=== PATIENT | female | born 1995 | race Caucasian/White ===

== ENCOUNTER 2019-10-09 15:45 | Inpatient (IN) | payer OTHER ==
[2019-10-09] MEDS ORDERED: AMPICILLIN SODIUM 2 GM VIAL ONE (17:15)
[2019-10-09 17:20] VITALS: BMI 22.4
[2019-10-09] MEDS ORDERED: ELECTROLYTE-148 SOLN 500 ML IV ONE (17:21)
[2019-10-09] MEDS ORDERED: CITRIC ACID/SODIUM CITRATE 30 ML UNIT-DOSE CUP PO ONE (17:21)
[2019-10-09] MEDS ORDERED: ceFAZolin 2 GRAM PREMIX BAG IVPB ONE (17:30)
--- NOTE | 2019-10-09 17:44 | HP ---
Past Medical History - Primary Care Physician PCP:: Jose Henson - Admission Chief Complaint: Continuous urination and decreased FM History of Present Illness: Patient reports noticing "continuous urination since early afternoon yesterda." Today she started yto noticed decreased FM and her "abdomen appears smaller." patient also reports mild spotting. 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: Alzheimer's, CVA, Dementia, Migraine, Multiple Sclerosis, Peripheral Neuropathy, Parkinson's, Seizure, Syncope, TIA, Vertigo, Other Cardiovascular: No: AFIB, Aneurysm, Aortic Insufficiency, Aortic Stenosis, CAD, CHF, Deep Vein Thrombosis, HTN, Hyperlipdemia, ME, Mitral Insufficiency, Mitral Stenosis, Murmur, Pulmonary Hypertension, Other Pulmonary: No: Asthma, Bronchitis, Cancer, COPD, O2 Dependent, Pneumonia, Previously Intubated, Pulmonary Embolus, Pulmonary Fibrosis, Sleep Apnea, Other Gastrointestinal: No: Ascites, Cancer, Constipation, Crohn's Disease, Diverticulitis, Diverticulosis, Esophageal Varices, Gastritis, GERD, GI Bleed, Hemorrhoids, Hiatal Hernia, Inflamatory Bowel Disease, Irritable Bowel Disease, Pancreatitis, Peptic Ulcer Disease, Ulcerative Colitis, Other Hepatobiliary: No: Cirrhosis, Cholelithiasis, Cholecystitis, Choledocholithiasis , Hepatitis A, Hepatitis B, Hepatitis C, Other Renal/: No: Renal Failure, Renal Inusuff, BPH, Cancer, Hematuria, Hemodialysis , Neurogenic Bladder, Renal Calculi, UTI, Other Reproductive: No: Ectopic , Endometriosis, Fibroids, PID, Polycystic Ovary Syndrome, Postmenopausal, Other ...: 2 ...Para: 1 ...: 1 ...EDC by [facility]: 11/08/19 Heme/Onc: No: Anemia, B12 Deficiency, Bleeding Disorder, Cancer, Current Chemotherapy, Current Radiation Therapy, Hemochromatosis, Hypercoaguable State, Myeloproliferative Synd, Sickle Cell Disease, Sickle Cell Trait, Thrombocytopenia, Other Infectious Disease: No: AIDS, C-Diff, Herpes Zoster, HIV, MRSA, STD's, Tuberculosis, VREF, Other Psych: No: Addictions, Anxiety, Bipolar, Depression, Panic, Psychosis, Schizophrenia, Other Musculoskeletal: No: Bursitis, Chronic low back pain, Hemiparesis, Hemiplegia, Osteoarthritis, Paraplegia, Other Rheumatology: No: Fibromyalgia, Gout, Lupus, Rheumatoid Arthritis, Sarcoidosis, Vasculitis, Other ENT: No: Allergic Rhinitis, Sinusitis, Other Endocrine: No: Nuckolls's Disease, [place]'s Disease, Diabetes Insipidus, Diabetes Mellitus, Hyperparathyroidism, Hyperthyroidism, Hypothyroidism, Osteopenia, SIADH, Other Dermatology: No: Basal Cell, Cellulitis, Eczema, Melanoma, Psoriasis, Squamous Cell, Other - Past Surgical History Past Surgical History: No: None, AAA Repair, AICD, Amputation, Appendectomy, Arthrosocopy, AV Fistula/Graft, Bariatric Surgery, Breast Biopsy, Bypass, CABG, Carotid Endarterectomy, Cataract Removal, Cholecystectomy, Colectomy, Colonoscopy, Colostomy, Craniotomy, , Cystectomy, Hernia Repair, Hysterectomy, Ileal Conduit, Ileosotomy, Joint Replacement, Kidney Transplant, Laminectomy, Liver Transplant, Mastectomy, Nephrectomy, Oopherectomy, Orchiectomy, Permanent Pacemaker, Prostatectomy, Splenectomy, Stent, Thoracotomy , TURP, Tonsillectomy, Tubal Ligation, Upper Endoscopy, Valve Replacement, Vasectomy, Vein Stripping/Ligation Hx Myomectomy: No Hx Transabdominal Cerclage: No - Smoking History Smoking history: Never smoked Have you smoked in the past 12 months: No - Alcohol/Substance Use Hx Alcohol Use: No Home Medications - Allergies Allergies/Adverse Reactions: Allergies Allergy/AdvReac Type Severity Reaction Status Date / Time No Known Allergies Allergy Verified 10/09/19 17:37 - Home Medications Home Medications: Ambulatory Orders Pnv No.95/Ferrous Fum/Folic AC [ Formula] 1 each PO DAILY 08/14/19 Family Medical History Family Hx Diabetes: Grandmother (paternal) Review of Systems Findings/Remarks: Patient reports needing to go to the bathroom frequently - Review of Systems Constitutional: reports: No Symptoms Eyes: reports: No Symptoms Neck: reports: No Symptoms Cardiovascular: reports: No Symptoms Respiratory: reports: No Symptoms Gastrointestinal: reports: No Symptoms Genitourinary: reports: No Symptoms Breasts: reports: No Symptoms Reported Musculoskeletal: reports: No Symptoms Integumentary: reports: No Symptoms Neurological: reports: No Symptoms Endocrine: reports: No Symptoms Hematology/Lymphatic: reports: No Symptoms Psychiatric: reports: No Symptoms Physical Exam - Maternity Vital Signs: Vital Signs Temperature 97.4 F L 10/09/19 17:12 Pulse Rate 72 10/09/19 17:12 Respiratory Rate 18 10/09/19 17:12 Blood Pressure 109/76 10/09/19 17:12 O2 Sat by Pulse Oximetry (%) Constitutional: Yes: Calm HENT: Yes: Atraumatic Neck: Yes: Supple Cardiovascular: Yes: Regular Rate and Rhythm Lungs: Clear to auscultation Breast(s): Yes: Other (deferred) - Abdominal Exam/OB Number of Fetuses: Single Presentation: Breech Contractions: No Regularity: Irregular Intensity: Unaware Monitor Mode: External Category: I Accelerations: Uniform Decelerations: Variable - Vaginal Exam/OB Vaginal Bleediing: No Speculum Exam: Yes (small pooling) Dilatation (cm): 3 Effacement (%): 60 Amniotic Membrane Status: Ruptured Nitrazine Test: Positive Amniotic Fluid: Yes: Clear Presentation: Alex Breech Station: -3 - Physical Exam Musculoskeletal: Yes: WNL Extremities: Yes: WNL Edema: Yes Edema: LLE: Trace, RLE: Trace Integumentary: Yes: WNL Deep Tendon Reflex Grade: Normal +2 ...Motor Strength: WNL Psychiatric: Yes: Alert, Oriented - Labs Lab Results: sent Imaging - Results Ultrasound: Report Reviewed Problem List - Problems (1) Malpresentation before onset of labor Code(s): O32.9XX0 - MATERNAL CARE FOR MALPRESENTATION OF FETUS, UNSP, UNSP (2) premature rupture of membranes (PPROM) with unknown onset of labor Code(s): O42.919 - PRETRM KAYLIN ROM, UNSP TIME BETW RUPT AND ONST LABR, UNSP TRI Assessment/Plan 24 y/o @ 35.5wks, PPROM since yesterday, FHT cat II with occasional variables, H/O PTD and , on jignesh, latent early labor, malpresentation. Patient counseled regarding CD and informed consnet obtained. -Anesthesia and neonatology notified -proceed urgently
[2019-10-09] MEDS ORDERED: morphine SULFATE/PF 0.5 MG/ML (2cc Syringe - QUVA) ONE (18:13)
--- NOTE | 2019-10-09 18:18 | PN ---
Progress Note (short form) - Note Progress Note: summary reviewed by attending and no significant issues other as documented and H/O Chlamydia early in . Case discussed with neonatology and pr intern. We will proceed in emergent fashion. Problem List - Problems (1) Malpresentation before onset of labor Code(s): O32.9XX0 - MATERNAL CARE FOR MALPRESENTATION OF FETUS, UNSP, UNSP (2) premature rupture of membranes (PPROM) with unknown onset of labor Code(s): O42.919 - PRETRM KAYLIN ROM, UNSP TIME BETW RUPT AND ONST LABR, UNSP TRI
[2019-10-09] MEDS ORDERED: oxyCODONE HCL 5 MG TABLET PO PRN (18:21)
[2019-10-09] MEDS ORDERED: morphine SULFATE/PF 0.5 MG/ML (2cc Syringe - QUVA) EP ONE (18:22)
[2019-10-09] MEDS ORDERED: ceFAZolin SODIUM 1 GM VIAL ONE (18:28)
[2019-10-09] MEDS ORDERED: KETOROLAC TROMETHAMINE 30 MG/1 ML VIAL ONE (18:32)
[2019-10-09 18:33] LABS: BASO % 0.3 % (0-2.0); EOS % 0.5 % (0-4.5); HEMATOCRIT 29.1 % (32.4-45.2); HEMOGLOBIN 9.5 GM/dL (10.7-15.3); LYMPH % 12.5 % (8-40); MCH 30.1 pg (25.7-33.7); MCHC 32.5 g/dl (32.0-36.0); MEAN CELL VOLUME 92.4 fl (80-96); MEAN PLT VOLUME 8.8 fl (7.5-11.1); MONO % 9.4 % (3.8-10.2); NEUT % 77.3 % (42.8-82.8); PLATELET COUNT 268 K/MM3 (134-434); RBC 3.15 M/mm3 (3.60-5.2); RDW 13.1 % (11.6-15.6); WHITE BLOOD COUNT 15.9 K/mm3 (4.0-10.0)
[2019-10-09] MEDS ORDERED: OXYTOCIN 10 UNITS/ML VIAL ONE (18:43)
[2019-10-09 18:45] LABS: INR 0.96 (0.83-1.09); PROTHROMBIN TIME (PATIENT) 11.3 SEC (9.7-13.0)
[2019-10-09 18:53] LABS: BLOOD UREA NITROGEN 3.7 mg/dL (7-18); CALCIUM 9.7 mg/dL (8.5-10.1); CREATININE 0.4 mg/dL (0.55-1.3); POTASSIUM 4.4 mmol/L (3.5-5.1)
--- NOTE | 2019-10-09 19:09 | OP ---
Operative Note - Note: Operative Date: 10/09/19 (Dic#[id number]) Pre-Operative Diagnosis: PPROM and Breech presentation Operation: PLTCS Findings: see dictation Post-Operative Diagnosis: Same as Pre-op Surgeon: Jose Henson Recycling Sorter: Alexis Moore Anesthesia: Spinal Estimated Blood Loss (mls): 700 Fluid Volume Replaced (mls): 1,000 Operative Report Dictated: Yes
[2019-10-09] MEDS ORDERED: ONDANSETRON 4 MG/2 ML VIAL IVPUSH PRN ×2 (19:17)
--- NOTE | 2019-10-09 19:40 | OP ---
DATE OF OPERATION: 10/09/2019 PREOPERATIVE DIAGNOSIS: A 24-year-old 2, para 0-1-0-0 at 35 and 5 weeks gestation, premature rupture of membranes, latent early labor, breech presentation. POSTOPERATIVE DIAGNOSIS: A 24-year-old 2, para 0-1-0-0 at 35 and 5 weeks gestation, premature rupture of membranes, latent early labor, breech presentation. PROCEDURE: Primary low transverse section. SURGEON: Mello Fischer MD COMMUNICATIONS CLERK: REG Kenny ANESTHESIA: Spinal. ESTIMATED BLOOD LOSS: 700 mL. INTRAVENOUS FLUIDS: 1 L of crystalloid. URINE: Clear. COMPLICATIONS: None. FINDINGS: Normal anterior abdominal anatomy. Impending laya breech presentation. Bag posterior. No amniotic fluid. Live viable female. Uterus, bilateral tubes and ovaries consistent with normal anatomy. DESCRIPTION OF PROCEDURE: The patient was taken to the operating room where anesthesia was found to be adequate. She was then prepped and draped in the normal sterile fashion. Urinary Eugene catheter was placed atraumatically. Appropriate timeout took place. Pfannenstiel skin incision was carried through to the underlying fascia with the Bovie. The fascia was incised in the midline and the incision was extended laterally with sharp dissection. The underlying rectus muscles were dissected off sharply and bluntly. The rectus muscles were in the midline and the peritoneum was entered bluntly. Bladder blade was placed and the lower uterine segment was slightly effaced. Low transverse uterine segment incision was made with scalpel and extended laterally with blunt dissection. Infant was in the breech presentation back posterior. Infant was delivered through the surgical incision with mild fundal pressure with breech maneuvers, uncomplicated. Umbilical cord was clamped after delay and the was handed off to the awaiting NICU staff. The placenta was delivered manually and intact. The uterus was exteriorized through the surgical incision and the intrauterine cavity was cleared of all clots and debris. Hysterotomy incision was approximated with 1-0 Polysorb in a running locked fashion. Excellent structure reapproximation and hemostasis achieved with one-layer suture. Uterus was internalized to the pelvic cavity and gutters were cleared of all clots and debris. The fascial incision was reapproximated with 0 Polysorb running locked sutures. Excellent structure reapproximation achieved and confirmed by palpation by the surgeon. Subcutaneous tissues were copiously irrigated and bleeding neutralized with Bovie cautery. The skin incision was reapproximated with 3-0 Monocryl subcuticular sutures. Excellent structure reapproximation achieved. Patient tolerated the procedure well. Instrument count was reported as correct x2 by the staff. MELLO FISCHER MD [id number] MTDD
[2019-10-09] MEDS ORDERED: IBUPROFEN 800 MG/8 ML IJ IVPB ONE ×2 (20:31→20:36)
[2019-10-09] MEDS ORDERED: OXYTOCIN 20 UNITS in 0.9% NS 20 UNIT/1,000 ML INFUS.BAG IV ONE (20:34)
[2019-10-09] MEDS: OXYTOCIN 20 UNITS in 0.9% NS 20 UNIT/1,000 ML INFUS.BAG IV SCH (20:45)
[2019-10-09] MEDS ORDERED: METHYLERGONOVINE MALEATE 0.2 MG/1 ML AMP IM ONE (21:58)
[2019-10-09] MEDS: METHYLERGONOVINE MALEATE 0.2 MG TABLET (FP) PO SCH (22:04)
[2019-10-09 22:05] LABS: EPI CELLS 3.8 /HPF (0-5/HPF); HYALINE CASTS 42 /lpf (0-8); PH,URINE 8.5 (5.0-8.0); URINE APPEARANCE CLEAR; URINE BACTERIA 655.3 /hpf (NEGATIVE); URINE BILIRUBIN NEGATIVE (NEGATIVE); URINE COLOR YELLOW; URINE GLUCOSE (UA) NEGATIVE (NEGATIVE); URINE KETONE NEGATIVE (NEGATIVE); URINE LEUK ESTERASE 2+ (NEGATIVE); URINE NITRITE POSITIVE (NEGATIVE); URINE PROTEIN NEGATIVE (NEGATIVE); URINE RBC 2 /hpf (0-4); URINE WBC 57 /hpf (0-5)
[2019-10-10] MEDS: METHYLERGONOVINE MALEATE 0.2 MG TABLET (FP) PO SCH ×6 (02:02→22:05)
[2019-10-10] MEDS: OXYTOCIN 20 UNITS in 0.9% NS 20 UNIT/1,000 ML INFUS.BAG IV SCH (05:51)
--- NOTE | 2019-10-10 07:50 | PN ---
Post Progress Note - Subjective Subjective: Woodruff in place, tolerating PO, lochia decreased, breast feeding encouraged Type of Delivery: Primary C/S Vital Signs: Vital Signs Temperature 98.6 F 10/10/19 05:54 Pulse Rate 95 H 10/10/19 05:54 Respiratory Rate 20 10/10/19 05:56 Blood Pressure 104/58 L 10/10/19 05:54 O2 Sat by Pulse Oximetry (%) 87 L 10/09/19 19:55 Breast Exam: Yes: Other (deferred) Uterus: Yes: Fundus Firm Incision: Yes: Sutures intact Abdomen/GI: Yes: Abdomen soft Lochia, amount: Moderate Extremities: Yes: Calves non-tender Activity: Other - Labs Labs: CBC WBC 15.9 K/mm3 (4.0-10.0) H 10/09/19 17:59 RBC 3.15 M/mm3 (3.60-5.2) L 10/09/19 17:59 Hgb 9.5 GM/dL (10.7-15.3) L 10/09/19 17:59 Hct 29.1 % (32.4-45.2) L 10/09/19 17:59 MCV 92.4 fl (80-96) 10/09/19 17:59 MCH 30.1 pg (25.7-33.7) 10/09/19 17:59 MCHC 32.5 g/dl (32.0-36.0) 10/09/19 17:59 RDW 13.1 % (11.6-15.6) 10/09/19 17:59 Plt Count 268 K/MM3 (134-434) 10/09/19 17:59 MPV 8.8 fl (7.5-11.1) 10/09/19 17:59 Absolute Neuts (auto) 12.3 K/mm3 (1.5-8.0) H 10/09/19 17:59 Neutrophils % 77.3 % (42.8-82.8) 10/09/19 17:59 Lymphocytes % 12.5 % (8-40) 10/09/19 17:59 Monocytes % 9.4 % (3.8-10.2) 10/09/19 17:59 Eosinophils % 0.5 % (0-4.5) 10/09/19 17:59 Basophils % 0.3 % (0-2.0) 10/09/19 17:59 Nucleated RBC % 0 % (0-0) 10/09/19 17:59 Problem List - Problems (1) Malpresentation before onset of labor Code(s): O32.9XX0 - MATERNAL CARE FOR MALPRESENTATION OF FETUS, UNSP, UNSP (2) premature rupture of membranes (PPROM) with unknown onset of labor Code(s): O42.919 - PRETRM KAYLIN ROM, UNSP TIME BETW RUPT AND ONST LABR, UNSP TRI Assessment/Plan POD # 1 S/P PLTC due to PPROM and breech presentation, woodruff in place -F/U AM CBC -DC woodruff and encourage ambulation -Continue inpatient care -Anticipate D/C on POD # 3
[2019-10-10] MEDS ORDERED: IBUPROFEN 800 MG/8 ML IJ IVPB ONE (08:02)
[2019-10-10 08:10] LABS: BASO % 0.3 % (0-2.0); EOS % 0.2 % (0-4.5); HEMATOCRIT 30.5 % (32.4-45.2); HEMOGLOBIN 9.9 GM/dL (10.7-15.3); LYMPH % 6.7 % (8-40); MCH 29.6 pg (25.7-33.7); MCHC 32.5 g/dl (32.0-36.0); MEAN PLT VOLUME 8.9 fl (7.5-11.1); MONO % 9.8 % (3.8-10.2); PLATELET COUNT 239 K/MM3 (134-434); RBC 3.35 M/mm3 (3.60-5.2); RDW 13.2 % (11.6-15.6); WHITE BLOOD COUNT 21.5 K/mm3 (4.0-10.0)
--- NOTE | 2019-10-10 08:36 | PN ---
Progress Note (short form) - Note Progress Note: Anesthesia POD#1 S/P under Spinal a and Duramorph VSS, no N/V,mild pain, legs fully recovered. Lona Rayo MD.
[2019-10-10] MEDS: ACETAMINOPHEN 325 MG TABLET (FP) PO PRN ×2 (10:09→18:04)
[2019-10-10] MEDS: SIMETHICONE 80 MG TAB.CHEW (FP) PO PRN ×3 (10:10→20:52)
[2019-10-10 11:35] LABS: ANISOCYTOSIS 0; MACROCYTOSIS 0; PLATELET ESTIMATE NORMAL
[2019-10-10] MEDS: IBUPROFEN 600 MG TABLET (FP) PO PRN ×2 (14:30→20:52)
[2019-10-10] MEDS ORDERED: BISACODYL 10 MG SUPP.RECT RC PRN (18:21)
[2019-10-11] MEDS: SIMETHICONE 80 MG TAB.CHEW (FP) PO PRN (04:19)
[2019-10-11] MEDS: IBUPROFEN 600 MG TABLET (FP) PO PRN ×4 (04:19→19:13)
[2019-10-11] MEDS: ACETAMINOPHEN 325 MG TABLET (FP) PO PRN ×3 (04:19→19:14)
--- NOTE | 2019-10-11 09:00 | PN ---
Post Progress Note - Subjective Subjective: 24 yo Para 1 status post primary , seen and evaluated. Doing well. Post Day: 2 Type of Delivery: Primary C/S Vital Signs: Vital Signs Temperature 98.1 F 10/10/19 20:19 Pulse Rate 85 10/10/19 20:19 Respiratory Rate 20 10/10/19 20:19 Blood Pressure 109/61 10/10/19 20:19 O2 Sat by Pulse Oximetry (%) 87 L 10/09/19 19:55 Breast Exam: Yes: Soft Uterus: Yes: Fundus @ umbilicus Incision: Yes: Dressing dry and intact Abdomen/GI: Yes: Abdomen soft, Tolerating PO Lochia: Yes: Rubra Lochia, amount: Small Extremities: Yes: Calves non-tender Activity: Ambulating - Labs Labs: CBC WBC 21.5 K/mm3 (4.0-10.0) H 10/10/19 07:40 RBC 3.35 M/mm3 (3.60-5.2) L 10/10/19 07:40 Hgb 9.9 GM/dL (10.7-15.3) L 10/10/19 07:40 Hct 30.5 % (32.4-45.2) L 10/10/19 07:40 MCV 91.0 fl (80-96) 10/10/19 07:40 MCH 29.6 pg (25.7-33.7) 10/10/19 07:40 MCHC 32.5 g/dl (32.0-36.0) 10/10/19 07:40 RDW 13.2 % (11.6-15.6) 10/10/19 07:40 Plt Count 239 K/MM3 (134-434) 10/10/19 07:40 MPV 8.9 fl (7.5-11.1) 10/10/19 07:40 Absolute Neuts (auto) 17.9 K/mm3 (1.5-8.0) H 10/10/19 07:40 Neutrophils % 83.0 % (42.8-82.8) H 10/10/19 07:40 Neutrophils % (Manual) 82.0 % (42.8-82.8) 10/10/19 07:40 Band Neutrophils % 0.0 % 10/10/19 07:40 Lymphocytes % 6.7 % (8-40) L D 10/10/19 07:40 Lymphocytes % (Manual) 7.0 % (8-40) L 10/10/19 07:40 Monocytes % 9.8 % (3.8-10.2) 10/10/19 07:40 Monocytes % (Manual) 10 % (3.8-10.2) 10/10/19 07:40 Eosinophils % 0.2 % (0-4.5) 10/10/19 07:40 Eosinophils % (Manual) 0.0 % (0-4.5) 10/10/19 07:40 Basophils % 0.3 % (0-2.0) 10/10/19 07:40 Basophils % (Manual) 0.0 % (0-2.0) 10/10/19 07:40 Myelocytes % (Man) 0 % (0-2) 10/10/19 07:40 Promyelocytes % (Man) 0 % (0-2) 10/10/19 07:40 Blast Cells % (Manual) 0 % (0-0) 10/10/19 07:40 Nucleated RBC % 0 % (0-0) 10/10/19 07:40 Metamyelocytes 0 % (0-2) 10/10/19 07:40 Hypochromia 0 10/10/19 07:40 Platelet Estimate Normal 10/10/19 07:40 Polychromasia 0 10/10/19 07:40 Poikilocytosis 0 10/10/19 07:40 Anisocytosis 0 10/10/19 07:40 Microcytosis 0 10/10/19 07:40 Macrocytosis 0 10/10/19 07:40 Stomatocytes 1+ 10/10/19 07:40 Problem List - Problems (1) Status post primary low transverse section Problems reviewed: Yes Code(s): Z98.891 - HISTORY OF UTERINE SCAR FROM PREVIOUS SURGERY Assessment/Plan Status post primary Ambulation Analgesia as needed Continue routine post op care
[2019-10-11] MEDS: ELECTROLYTE-148 SOLN 1,000 ML IV SCH ×2 (19:52→19:53)
[2019-10-11] MEDS: LACTATED RINGERS SOLUTION 1,000 ML IV SCH (19:53)
[2019-10-11] MEDS: OXYTOCIN 20 UNITS in 0.9% NS 20 UNIT/1,000 ML INFUS.BAG IV SCH (19:53)
--- NOTE | 2019-10-12 06:15 | PN ---
Post Progress Note - Subjective Subjective: c/o pain scale 3-4/10 voiding without difficulty Post Day: 3 Type of Delivery: Primary C/S Vital Signs: Vital Signs Temperature 98.1 F 10/11/19 20:36 Pulse Rate 107 H 10/11/19 20:36 Respiratory Rate 20 10/11/19 20:36 Blood Pressure 119/68 10/11/19 20:36 O2 Sat by Pulse Oximetry (%) 87 L 10/09/19 19:55 Breast Exam: Yes: Soft, Other (bottle feeding ). No: Engorged Uterus: Yes: Fundus Firm, Fundus below umbilicus, Non-tender Incision: Yes: Sutures intact. No: Redness, Oozing Abdomen/GI: Yes: Abdomen soft, Passing flatus (bm done ), Tolerating PO (diet ) . No: Abdominal Distention, Tender Lochia: Yes: Rubra Lochia, amount: Moderate Extremities: Yes: Calves non-tender Perineum: Yes: Intact Activity: Ambulating - Labs Labs: CBC WBC 21.5 K/mm3 (4.0-10.0) H 10/10/19 07:40 RBC 3.35 M/mm3 (3.60-5.2) L 10/10/19 07:40 Hgb 9.9 GM/dL (10.7-15.3) L 10/10/19 07:40 Hct 30.5 % (32.4-45.2) L 10/10/19 07:40 MCV 91.0 fl (80-96) 10/10/19 07:40 MCH 29.6 pg (25.7-33.7) 10/10/19 07:40 MCHC 32.5 g/dl (32.0-36.0) 10/10/19 07:40 RDW 13.2 % (11.6-15.6) 10/10/19 07:40 Plt Count 239 K/MM3 (134-434) 10/10/19 07:40 MPV 8.9 fl (7.5-11.1) 10/10/19 07:40 Absolute Neuts (auto) 17.9 K/mm3 (1.5-8.0) H 10/10/19 07:40 Neutrophils % 83.0 % (42.8-82.8) H 10/10/19 07:40 Neutrophils % (Manual) 82.0 % (42.8-82.8) 10/10/19 07:40 Band Neutrophils % 0.0 % 10/10/19 07:40 Lymphocytes % 6.7 % (8-40) L D 10/10/19 07:40 Lymphocytes % (Manual) 7.0 % (8-40) L 10/10/19 07:40 Monocytes % 9.8 % (3.8-10.2) 10/10/19 07:40 Monocytes % (Manual) 10 % (3.8-10.2) 10/10/19 07:40 Eosinophils % 0.2 % (0-4.5) 10/10/19 07:40 Eosinophils % (Manual) 0.0 % (0-4.5) 10/10/19 07:40 Basophils % 0.3 % (0-2.0) 10/10/19 07:40 Basophils % (Manual) 0.0 % (0-2.0) 10/10/19 07:40 Myelocytes % (Man) 0 % (0-2) 10/10/19 07:40 Promyelocytes % (Man) 0 % (0-2) 10/10/19 07:40 Blast Cells % (Manual) 0 % (0-0) 10/10/19 07:40 Nucleated RBC % 0 % (0-0) 10/10/19 07:40 Metamyelocytes 0 % (0-2) 10/10/19 07:40 Hypochromia 0 10/10/19 07:40 Platelet Estimate Normal 10/10/19 07:40 Polychromasia 0 10/10/19 07:40 Poikilocytosis 0 10/10/19 07:40 Anisocytosis 0 10/10/19 07:40 Microcytosis 0 10/10/19 07:40 Macrocytosis 0 10/10/19 07:40 Stomatocytes 1+ 10/10/19 07:40 Problem List - Problems (1) Status post section routine follow-up Code(s): Z39.2 - ENCOUNTER FOR ROUTINE FOLLOW-UP; Z98.891 - HISTORY OF UTERINE SCAR FROM PREVIOUS SURGERY Assessment/Plan post c/section stable anemia counselled since in nursery, pt will go home tomorrow.
[2019-10-12 08:19] LABS: BASO % 0.3 % (0-2.0); EOS % 1.1 % (0-4.5); HEMATOCRIT 26.8 % (32.4-45.2); HEMOGLOBIN 8.7 GM/dL (10.7-15.3); MCH 29.9 pg (25.7-33.7); MCHC 32.6 g/dl (32.0-36.0); MEAN CELL VOLUME 91.8 fl (80-96); MEAN PLT VOLUME 8.7 fl (7.5-11.1); MONO % 8.9 % (3.8-10.2); NEUT % 74.7 % (42.8-82.8); PLATELET COUNT 274 K/MM3 (134-434); RBC 2.92 M/mm3 (3.60-5.2); RDW 13.3 % (11.6-15.6); WHITE BLOOD COUNT 18.1 K/mm3 (4.0-10.0)
[2019-10-12] MEDS: IBUPROFEN 600 MG TABLET (FP) PO PRN ×3 (08:57→22:21)
[2019-10-12] MEDS: ACETAMINOPHEN 325 MG TABLET (FP) PO PRN ×3 (08:57→22:21)
[2019-10-12] MEDS: SIMETHICONE 80 MG TAB.CHEW (FP) PO PRN ×2 (14:24→22:21)
--- NOTE | 2019-10-13 08:36 | DS ---
Physical Examination Vital Signs: Vital Signs Temperature 97.6 F 10/12/19 21:41 Pulse Rate 93 H 10/12/19 21:41 Respiratory Rate 18 10/12/19 21:41 Blood Pressure 122/70 10/12/19 21:41 O2 Sat by Pulse Oximetry (%) 87 L 10/09/19 19:55 Constitutional: Yes: Well Nourished, No Distress, Calm Eyes: Yes: WNL, Conjunctiva Clear, EOM Intact HENT: Yes: WNL, Atraumatic, Normocephalic Neck: Yes: WNL, Supple, Trachea Midline Cardiovascular: Yes: WNL, Regular Rate and Rhythm Respiratory: Yes: WNL, Regular, CTA Bilaterally Gastrointestinal: Yes: WNL, Normal Bowel Sounds Musculoskeletal: Yes: WNL Extremities: Yes: WNL Edema: No Integumentary: Yes: WNL Neurological: Yes: WNL, Alert, Oriented ...Motor Strength: WNL Psychiatric: Yes: WNL Labs: CBC, BMP 10/12/19 06:33 10/09/19 17:59 Discharge Summary Problems reviewed: Yes Reason For Visit: LABOR Current Active Problems Malpresentation before onset of labor (Acute) premature rupture of membranes (PPROM) with unknown onset of labor ( Acute) Status post section routine follow-up (Acute) Status post primary low transverse section (Acute) Procedures: Principal: PLTCS Hospital Course: Patient presented with PPROM Found to be in early labor, breech presentation Had PLTCS, which was uncomplicated She met all postoperative milestones She was discharged home on POD#4 Condition: Stable - Instructions Diet, Activity, Other Instructions: Please return to regular diet as tolerated. Regular activity when cleared by MD. Follow up discharge instructions as discussed at bedside. Follow up within a week for incision check. Call MD with any questions or concerns. Follow up with Dra. Marin on 10/19 at [facility] to have your incision checked Referrals: Sakina Marin MD [Staff Physician] - Jose Henson MD [Staff Physician] - Disposition: HOME - Home Medications Comprehensive Discharge Medication List: Ambulatory Orders Pnv No.95/Ferrous Fum/Folic AC [ Formula] 1 each PO DAILY 08/14/19 Acetaminophen [Tylenol] 650 mg PO Q6H PRN #20 capsule MDD 5 10/09/19 Ibuprofen 600 mg PO Q6H PRN #30 tablet 10/09/19 Oxycodone HCl 5 mg PO Q6H PRN #10 tablet MDD 5 10/09/19
[2019-10-13] MEDS: IBUPROFEN 600 MG TABLET (FP) PO PRN (11:36)
[2019-10-13] MEDS: ACETAMINOPHEN 325 MG TABLET (FP) PO PRN (11:38)
--- NOTE | 2019-10-13 12:55 | PATH ---
Surgical Pathology Report Patient Name: JOB CASTRO [facility]. Rec. #: [id number] /Age/Gender: 1995 (Age: 24) / F Account: [id number] Location: [facility] OBS/IT BUSINESS ANALYST Taken: 10/09/2019 Received: 10/10/2019 Reported: 10/13/2019 Physicians: Jose Henson MD Specimen(s) Received PLACENTA Clinical History , 35.5 gestational weeks, PPROM- transverse lie Final Diagnosis PLACENTA, SECTION: 485 G THIRD TRIMESTER PLACENTA WITH TRIVASCULAR UMBILICAL CORD AND MILD TO MODERATE ACUTE CHORIOAMNIONITIS. Electronically Signed Penelope Montalvo M.D. Gross Description The specimen is received fresh labeled placenta and is a 485 gram, 21.0 x 12.0 x 2.7 cm. placenta with attached membranes and umbilical cord. The attached membranes are lund, translucent with focal opacities and insert marginally. The umbilical cord measures 12 cm. in length and averages 1.1 cm. in diameter. The cord inserts centrally. No true knots or strictures are identified. Cut surface of the umbilical cord reveals 3 vessels. The surface is oliva-blue with minimal fibrin deposition and appropriate caliber vessels. The maternal surface is red-brown with focal defects. Sectioning reveals red-brown, spongy parenchyma. No lesions are identified. Airborne Operations Manager sections are submitted in three cassettes as follows: 1- membrane rolls and umbilical cord; 2-3- full thickness sections of placenta. 10/12/2019 [facility]
[2019-10-13 15:09] VITALS: BP 120/68; PULSE 90; TEMP 98
== END 2019-10-13 14:45 | disposition home or self-care (01) | DRG 540 ==
LOC: JDEL 15:45 → JLDR 16:55 → J3W 20:50
PROVIDERS: ADMIT Student in an Organized Health Care Education/Training Program; ATTEND Student in an Organized Health Care Education/Training Program
PROC: 10D00Z1 Extraction of Products of Conception, Low, Open Approach (ICD-10-PCS; principal; 2019-10-09)
DX: O32.1XX0 Maternal care for breech presentation, not applicable or unspecified (principal); O42.913 Preterm premature rupture of membranes, unspecified as to length of time between rupture and onset of labor, third trimester; O60.14X0 Preterm labor third trimester with preterm delivery third trimester, not applicable or unspecified; Z3A.35 35 weeks gestation of pregnancy; Z37.0 Single live birth
CPT/HCPCS: 36415; 36600; 80048; 81003; 82803; 85025; 85610; 85730; 86593; 86850; 86900; 86901; 87086; 87389

== ENCOUNTER 2020-06-08 22:05 | Emergency (ER) | payer OTHER ==
--- NOTE | 2020-06-08 22:10 | PDOC ---
Rapid Medical Evaluation Time Seen by Provider: 06/08/20 22:08 Medical Evaluation: Allergies Allergy/AdvReac Type Severity Reaction Status Date / Time No Known Allergies Allergy Verified 10/09/19 17:37 06/08/20 22:08 I have performed a brief in-person evaluation of this patient. The patient presents with a chief complaint of: (s/p spon AB x 1) ~19 weeks per dates, here w/ lower back pain tonight. No abd pain, vag bleed, dysuria, f/c. +nausea, no vomiting Pertinent physical exam findings:stable I have ordered the following:ua/cx The patient will proceed to the ED for further evaluation. Discharge Disposition - Diagnosis Back pain affecting Qualifiers: Trimester: second trimester Qualified Code(s): O99.89 - Other specified diseases and conditions complicating , childbirth and the puerperium; M54.9 - Dorsalgia, unspecified - Referrals - Patient Instructions - Post Discharge Activity
[2020-06-08 22:16] VITALS: BP 115/73; PULSE 84; TEMP 98; BMI 26.4
[2020-06-08] MEDS ORDERED: ACETAMINOPHEN 500 MG TABLET (FP) PO ONE (22:41)
--- NOTE | 2020-06-08 22:41 | PDOC ---
History of Present Illness - General Chief Complaint: Pain Stated Complaint: 19 WKS/ABD PAIN Time Seen by Provider: 06/08/20 22:08 History Source: Patient Exam Limitations: No Limitations - History of Present Illness Initial Comments: 06/08/20 22:38 25-year-old female currently G3, P2 approximately 19 weeks here today complaining of right-sided flank pain. Patient states her symptoms are worse she also has it with lifting her 7-month-old baby. Worse with movement did not take anything for her pain prior to arrival denies any dysuria urinary urgency or hematuria no vaginal bleeding or loss of fluid. States has been uncomplicated no numbness or tingling no other current complaints Past History - Medical History Allergies/Adverse Reactions: Allergies Allergy/AdvReac Type Severity Reaction Status Date / Time No Known Allergies Allergy Verified 06/08/20 22:12 Home Medications: Ambulatory Orders Pnv No.95/Ferrous Fum/Folic AC [ Formula] 1 each PO DAILY 08/14/19 Acetaminophen [Tylenol] 650 mg PO Q6H PRN #20 capsule MDD 5 10/09/19 Asthma: No Cancer: No Cardiac Disorders: No COPD: No Diabetes: No HTN: No Seizures: No Thyroid Disease: No - Reproductive History Is Patient Now?: Yes Therapeutic (s) & number: No - Psycho-Social/Smoking History Smoking History: Never smoked Have you smoked in the past 12 months: No - Substance Abuse Hx (Audit-C & DAST Scrn) How often the patient has a drink containing alcohol: Never Score: In Men: 4 or > Positive; In Women: 3 or > Positive: 0 Screen Result (Pos requires Nsg. Audit-10AR): Negative Review of Systems - Review of Systems Constitutional: No: Diaphoresis, Fever Respiratory: No: Cough, Orthopnea, Shortness of Breath Cardiac (ROS): No: Chest Pain, Edema ABD/GI: No: Nausea, Vomiting : Yes: Flank Pain. No: Burning, Dysuria, Discharge Musculoskeletal: Yes: Back Pain Integumentary: No: Bruising, Change in Color Neurological: No: Headache, Numbness All Other Systems: Reviewed and Negative *Physical Exam - Vital Signs Last Vital Signs Temp Pulse Resp BP Pulse Ox 98 F 84 18 115/73 99 06/08/20 22:09 06/08/20 22:09 06/08/20 22:09 06/08/20 22:09 06/08/20 22:09 - Physical Exam 06/08/20 22:40 Awake alert no acute distress lungs are clear bilaterally heart is regular without murmurs rubs or gallops abdomen is soft and nontender there is minimal right flank tenderness no midline spinal tenderness lower extremities are with good strength bilaterally sensation is intact neurologically the patient has good strength sensation is intact awake alert and oriented x3 Medical Decision Making - Medical Decision Making 06/08/20 22:40 25-year-old female here today complaining of right-sided flank pain symptoms started earlier this evening worse with lifting her baby on my exam appears to be musculoskeletal differential includes UTI pyelo-renal colic less likely Plan UA urine culture focused ED ultrasound OB to evaluate for wellbeing and renal ultrasound to rule out hydronephrosis 06/20/20 10:56 ob us shows normal heart rate 140 bpm. good movement. renal us no hydronephrosis. pt given tylenol dc to home msk back pain., . Discharge - Discharge Information Problems reviewed: Yes Clinical Impression/Diagnosis: Back pain affecting Qualifiers: Trimester: second trimester Qualified Code(s): O99.89 - Other specified diseases and conditions complicating , childbirth and the puerperium Disposition: HOME - Follow up/Referral Referrals: Sakina Marin MD [Primary Care Provider] - - Patient Discharge Instructions Patient Printed Discharge Instructions: Back Pain (Alternative Therapy) Additional Instructions: your ultrasound of your baby shows a normal heart rate and good movement. your kidney ultrasound today is normal. you can take tylenol 500 mg every 6 hours as needed for pain. follow up with your primary gunner's mate g, return for any problems or concerns. - Post Discharge Activity
[2020-06-08 23:07] LABS: EPI CELLS 32 /uL (0-25.1); HYALINE CASTS 2 /uL (0-3.1); PH,URINE 6.5 (5.0-8.0); URINE APPEARANCE CLEAR; URINE BACTERIA 1717 /uL (0-1359); URINE BILIRUBIN NEGATIVE (NEGATIVE); URINE COLOR YELLOW; URINE GLUCOSE (UA) NEGATIVE (NEGATIVE); URINE KETONE NEGATIVE (NEGATIVE); URINE LEUK ESTERASE TRACE (NEGATIVE); URINE NITRITE NEGATIVE (NEGATIVE); URINE PROTEIN NEGATIVE (NEGATIVE); URINE RBC 17 /uL (0-23.9); URINE UROBILINOGEN 0.2 mg/dL (0.2-1.0); URINE WBC 35 /uL (0-25.8)
== END 2020-06-09 00:58 | disposition home or self-care (01) ==
LOC: JER 22:05
DX: O26.892 Other specified pregnancy related conditions, second trimester (principal); M54.9 Dorsalgia, unspecified
CPT/HCPCS: 76775; 76815; 81003; 87077; 87086; 99283-25

== ENCOUNTER 2020-10-31 11:21 | Inpatient (IN) | payer OTHER ==
[2020-10-31 13:15] VITALS: BMI 24.0
[2020-10-31] MEDS ORDERED: ELECTROLYTE-148 SOLN 500 ML IV ONE (13:43)
[2020-10-31] MEDS ORDERED: CITRIC ACID/SODIUM CITRATE 30 ML UNIT-DOSE CUP PO ONE (13:43)
[2020-10-31] MEDS: ELECTROLYTE-148 SOLN 1,000 ML IV SCH (13:45)
[2020-10-31] MEDS ORDERED: OXYTOCIN 10 UNITS/ML VIAL ONE (13:58)
[2020-10-31] MEDS ORDERED: morphine SULFATE/PF 1 MG/2 ML (2cc Syringe - QUVA) ONE (13:58)
[2020-10-31] MEDS ORDERED: ONDANSETRON 4 MG/2 ML VIAL ONE (13:58)
[2020-10-31] MEDS ORDERED: METHYLERGONOVINE MALEATE 0.2 MG/1 ML AMP IM PRN (15:06)
[2020-10-31] MEDS ORDERED: IBUPROFEN 600 MG TABLET (FP) PO PRN (15:06)
[2020-10-31] MEDS ORDERED: oxyCODONE HCL 5 MG TABLET PO PRN (15:06)
[2020-10-31] MEDS ORDERED: ONDANSETRON 4 MG/2 ML VIAL IVPUSH PRN (15:22)
[2020-10-31] MEDS: OXYTOCIN 20 UNITS in 0.9% NS 20 UNIT/1,000 ML INFUS.BAG IV SCH (16:15)
[2020-10-31] MEDS: FERROUS SO4 325 MG TABLET (FP) PO SCH (18:54)
[2020-11-01] MEDS: IBUPROFEN 800 MG/8 ML IJ IVPB PRN ×2 (06:16→17:05)
[2020-11-01 08:12] LABS: BASO % 0.3 % (0-2.0); EOS % 0.9 % (0-4.5); HEMATOCRIT 25.6 % (32.4-45.2); HEMOGLOBIN 7.7 GM/dL (10.7-15.3); LYMPH % 13.7 % (8-40); MCH 22.9 pg (25.7-33.7); MCHC 29.9 g/dl (32.0-36.0); MEAN CELL VOLUME 76.6 fl (80-96); MEAN PLT VOLUME 9.1 fl (7.5-11.1); MONO % 11.1 % (3.8-10.2); PLATELET COUNT 233 K/MM3 (134-434); RBC 3.34 M/mm3 (3.60-5.2); RDW 18.2 % (11.6-15.6); WHITE BLOOD COUNT 12.9 K/mm3 (4.0-10.0)
[2020-11-01] MEDS: FERROUS SO4 325 MG TABLET (FP) PO SCH ×2 (09:16→17:05)
[2020-11-01] MEDS: PRENATAL VITAMINS W/ FOLIC ACID TABLET (FP) PO SCH (09:16)
[2020-11-01] MEDS: SIMETHICONE 80 MG TAB.CHEW (FP) PO PRN ×2 (10:57→23:10)
[2020-11-01] MEDS: ACETAMINOPHEN 325 MG TABLET (FP) PO PRN ×2 (10:57→23:09)
[2020-11-01] MEDS ORDERED: BISACODYL 10 MG SUPP.RECT RC PRN (15:06)
[2020-11-01 21:22] VITALS: TEMP 97.5
[2020-11-01] MEDS: ELECTROLYTE-148 SOLN 1,000 ML IV SCH (23:08)
[2020-11-01] MEDS: OXYTOCIN 20 UNITS in 0.9% NS 20 UNIT/1,000 ML INFUS.BAG IV SCH (23:08)
[2020-11-02 08:26] LABS: BASO % 0.3 % (0-2.0); EOS % 1.4 % (0-4.5); HEMATOCRIT 26.3 % (32.4-45.2); LYMPH % 19.2 % (8-40); MCH 23.1 pg (25.7-33.7); MCHC 30.6 g/dl (32.0-36.0); MEAN CELL VOLUME 75.6 fl (80-96); MEAN PLT VOLUME 8.6 fl (7.5-11.1); MONO % 9.8 % (3.8-10.2); NEUT % 69.3 % (42.8-82.8); PLATELET COUNT 259 K/MM3 (134-434); RBC 3.48 M/mm3 (3.60-5.2); RDW 18.4 % (11.6-15.6); WHITE BLOOD COUNT 13.5 K/mm3 (4.0-10.0)
[2020-11-02 08:53] VITALS: BP 99/57; PULSE 77
[2020-11-02] MEDS: PRENATAL VITAMINS W/ FOLIC ACID TABLET (FP) PO SCH (09:10)
[2020-11-02] MEDS: FERROUS SO4 325 MG TABLET (FP) PO SCH (09:10)
== END 2020-11-02 12:00 | disposition home or self-care (01) | DRG 540 ==
LOC: JLDR 11:21 → J3W 16:45
PROVIDERS: ADMIT Obstetrics & Gynecology; ATTEND Obstetrics & Gynecology
PROC: 10D00Z1 Extraction of Products of Conception, Low, Open Approach (ICD-10-PCS; principal; 2020-10-31)
DX: O34.211 Maternal care for low transverse scar from previous cesarean delivery (principal); N85.8 Other specified noninflammatory disorders of uterus; O99.02 Anemia complicating childbirth; D64.9 Anemia, unspecified; Z3A.39 39 weeks gestation of pregnancy; Z37.0 Single live birth
CPT/HCPCS: 36415; 80053; 85025; 85610; 86850; 86900; 86901; 88307-TC; C9803; U0003

== ENCOUNTER 2022-07-07 10:41 | Emergency (ER) | payer OTHER ==
[2022-07-07 10:55] VITALS: TEMP 98.2; BMI 27.4
[2022-07-07] MEDS ORDERED: ONDANSETRON 4 MG/2 ML VIAL IVPUSH ONE (12:06)
[2022-07-07] MEDS ORDERED: ACETAMINOPHEN 1000 MG/100 ML BAG IVPB ONE (12:06)
[2022-07-07] MEDS ORDERED: SODIUM CHLORIDE 1,000 ML IV STA ×2 (12:06→16:03)
[2022-07-07] MEDS ORDERED: ONDANSETRON 4 MG/2 ML VIAL ONE (12:28)
[2022-07-07] MEDS ORDERED: ACETAMINOPHEN INJECTION 100 ML IVPB ONE (12:28)
[2022-07-07] MEDS ORDERED: morphine CARPU-JECT 4 MG/1 ML DISP.SYRIN IVPUSH ONE (12:46)
[2022-07-07 13:24] LABS: BASO % 0.3 % (0-2.0); HEMATOCRIT 42.3 % (32.4-45.2); HEMOGLOBIN 13.8 GM/dL (10.7-15.3); LYMPH % 7.8 % (8-40); MCH 29.5 pg (25.7-33.7); MCHC 32.6 g/dl (32.0-36.0); MEAN CELL VOLUME 90.6 fl (80-96); MEAN PLT VOLUME 9.7 fl (7.5-11.1); MONO % 2.9 % (3.8-10.2); PLATELET COUNT 293 10^3/uL (134-434); RBC 4.67 M/mm3 (3.60-5.2); RDW 12.9 % (11.6-15.6); WHITE BLOOD COUNT 16.9 K/mm3 (4.0-10.0)
[2022-07-07 13:48] LABS: CHLORIDE 110 mmol/L (98-107); SODIUM 137 mmol/L (136-145)
[2022-07-07 13:52] LABS: BLOOD UREA NITROGEN 12.5 mg/dL (7-18); CALCIUM 11.6 mg/dL (8.5-10.1); CO2 21 mmol/L (21-32); GLUCOSE,RANDOM 99 mg/dL (74-106)
[2022-07-07 13:54] LABS: SGPT/ALT 20 U/L (13-61)
[2022-07-07 13:55] LABS: SGOT/AST 52 U/L (15-37)
[2022-07-07 13:57] LABS: BILIRUBIN,TOTAL 0.4 mg/dL (0.2-1); TOT PROT 7.8 g/dl (6.4-8.2)
[2022-07-07 13:58] LABS: ALK PHOS 204 U/L (45-117); ANION GAP 6 MMOL/L (8-16); CREATININE 0.7 mg/dL (0.55-1.3)
[2022-07-07] MEDS ORDERED: morphine SULFATE 4 MG/ML VIAL ONE (14:00)
[2022-07-07 15:27] LABS: HCG,QUALITATIVE URINE Negative
[2022-07-07 15:34] LABS: EPI CELLS 34 /uL (0-25.1); HYALINE CASTS 0 /uL (0-3.1); URINE APPEARANCE CLEAR; URINE BACTERIA 1196 /uL (0-1359); URINE BILIRUBIN NEGATIVE (NEGATIVE); URINE COLOR YELLOW; URINE GLUCOSE (UA) NEGATIVE (NEGATIVE); URINE KETONE NEGATIVE (NEGATIVE); URINE LEUK ESTERASE TRACE (NEGATIVE); URINE NITRITE NEGATIVE (NEGATIVE); URINE PROTEIN NEGATIVE (NEGATIVE); URINE RBC 13 /uL (0-23.9); URINE UROBILINOGEN 0.2 mg/dL (0.2-1.0); URINE WBC 16 /uL (0-25.8)
[2022-07-07 17:07] LABS: BASO % 0.1 % (0-2.0); HEMATOCRIT 39.8 % (32.4-45.2); HEMOGLOBIN 13.3 GM/dL (10.7-15.3); LYMPH % 6.4 % (8-40); MCH 30.3 pg (25.7-33.7); MCHC 33.4 g/dl (32.0-36.0); MEAN CELL VOLUME 90.7 fl (80-96); MEAN PLT VOLUME 9.3 fl (7.5-11.1); MONO % 2.3 % (3.8-10.2); NEUT % 91.2 % (42.8-82.8); PLATELET COUNT 277 10^3/uL (134-434); RBC 4.38 M/mm3 (3.60-5.2); WHITE BLOOD COUNT 16.1 K/mm3 (4.0-10.0)
[2022-07-07 17:49] VITALS: BP 108/65; PULSE 63; RESP 15
[2022-07-07 18:00] LABS: ANISOCYTOSIS 1+; MACROCYTOSIS 1+
== END 2022-07-07 18:34 | disposition home or self-care (01) ==
LOC: JER 10:41
PROC: 3E0333Z Introduction of Anti-inflammatory into Peripheral Vein, Percutaneous Approach (ICD-10-PCS; principal; 2022-07-07)
PROC: 3E033NZ Introduction of Analgesics, Hypnotics, Sedatives into Peripheral Vein, Percutaneous Approach (ICD-10-PCS; 2022-07-07)
PROC: 3E033GC Introduction of Other Therapeutic Substance into Peripheral Vein, Percutaneous Approach (ICD-10-PCS; 2022-07-07)
PROC: 3E0337Z Introduction of Electrolytic and Water Balance Substance into Peripheral Vein, Percutaneous Approach (ICD-10-PCS; 2022-07-07)
PROC: 3E0337Z Introduction of Electrolytic and Water Balance Substance into Peripheral Vein, Percutaneous Approach (ICD-10-PCS; 2022-07-07)
DX: R10.9 Unspecified abdominal pain (principal)
CPT/HCPCS: 36415; 74176-TC; 76830-TC; 80053; 81003; 84132; 84703; 85025; 87086; 87491; 87591; 99285-25

== ENCOUNTER 2022-10-02 23:22 | Emergency (ER) | payer OTHER ==
[2022-10-02 23:46] VITALS: BP 110/62; PULSE 78; RESP 18; TEMP 98.1; BMI 22.3
[2022-10-02] MEDS ORDERED: ONDANSETRON 4 MG/2 ML VIAL IVPUSH ONE (23:50)
[2022-10-02] MEDS ORDERED: SODIUM CHLORIDE 500 ML IV STA (23:51)
[2022-10-02] MEDS ORDERED: ACETAMINOPHEN 1000 MG/100 ML BAG IVPB ONE (23:51)
[2022-10-03] MEDS ORDERED: ONDANSETRON 4 MG/2 ML VIAL ONE (00:51)
[2022-10-03 01:40] LABS: BASO % 0.6 % (0-2.0); EOS % 0.1 % (0-4.5); HEMATOCRIT 39.9 % (32.4-45.2); HEMOGLOBIN 13.3 GM/dL (10.7-15.3); LYMPH % 10.1 % (8-40); MCH 30.5 pg (25.7-33.7); MCHC 33.4 g/dl (32.0-36.0); MEAN CELL VOLUME 91.4 fl (80-96); MEAN PLT VOLUME 10.1 fl (7.5-11.1); MONO % 10.9 % (3.8-10.2); NEUT % 78.3 % (42.8-82.8); PLATELET COUNT 228 10^3/uL (134-434); RBC 4.36 M/mm3 (3.60-5.2); RDW 13.4 % (11.6-15.6); WHITE BLOOD COUNT 7.8 K/mm3 (4.0-10.0)
[2022-10-03 01:54] LABS: CALCIUM 11.4 mg/dL (8.5-10.1)
[2022-10-03 01:55] LABS: ALBUMIN 3.4 g/dl (3.4-5.0); BLOOD UREA NITROGEN 4.8 mg/dL (7-18)
[2022-10-03 01:58] LABS: CREATININE 0.4 mg/dL (0.55-1.3)
[2022-10-03 01:59] LABS: BILIRUBIN,TOTAL 2.3 mg/dL (0.2-1); TOT PROT 7.1 g/dl (6.4-8.2)
[2022-10-03 03:45] LABS: EPI CELLS 36 /uL (0-25.1); HYALINE CASTS 0 /uL (0-3.1); URINE APPEARANCE CLEAR; URINE BACTERIA 943 /uL (0-1359); URINE BILIRUBIN NEGATIVE (NEGATIVE); URINE COLOR DK YELLOW; URINE GLUCOSE (UA) NEGATIVE (NEGATIVE); URINE KETONE 2+ (NEGATIVE); URINE LEUK ESTERASE TRACE (NEGATIVE); URINE NITRITE NEGATIVE (NEGATIVE); URINE PROTEIN NEGATIVE (NEGATIVE); URINE RBC 80 /uL (0-23.9); URINE WBC 28 /uL (0-25.8)
== END 2022-10-03 04:28 | disposition home or self-care (01) ==
LOC: JER 23:22
PROC: 3E033NZ Introduction of Analgesics, Hypnotics, Sedatives into Peripheral Vein, Percutaneous Approach (ICD-10-PCS; principal; 2022-10-02)
PROC: 3E033GC Introduction of Other Therapeutic Substance into Peripheral Vein, Percutaneous Approach (ICD-10-PCS; 2022-10-02)
PROC: 3E0337Z Introduction of Electrolytic and Water Balance Substance into Peripheral Vein, Percutaneous Approach (ICD-10-PCS; 2022-10-02)
DX: N39.0 Urinary tract infection, site not specified (principal); K80.20 Calculus of gallbladder without cholecystitis without obstruction
CPT/HCPCS: 36415; 76705-TC; 76815; 80053; 81003; 82962; 83690; 84702; 84703; 85025; 86850; 86900; 86901; 87086; 96361; 96374; 96375; 99284-25

== ENCOUNTER 2022-10-04 16:42 | Inpatient (IN) | payer OTHER ==
[2022-10-04] MEDS ORDERED: SODIUM CHLORIDE 1,000 ML IV STA (18:03)
[2022-10-04] MEDS ORDERED: ACETAMINOPHEN 1000 MG/100 ML BAG IVPB ONE (18:03)
[2022-10-04] MEDS ORDERED: ONDANSETRON 4 MG/2 ML VIAL IVPUSH ONE (18:39)
[2022-10-04] MEDS ORDERED: ONDANSETRON 4 MG/2 ML VIAL ONE (18:40)
[2022-10-04] MEDS ORDERED: ACETAMINOPHEN INJECTION 100 ML IVPB ONE (18:40)
[2022-10-04 19:00] LABS: EOS % 0.1 % (0-4.5); HEMATOCRIT 40.8 % (32.4-45.2); HEMOGLOBIN 13.5 GM/dL (10.7-15.3); LYMPH % 12.8 % (8-40); MCH 30.1 pg (25.7-33.7); MCHC 33.1 g/dl (32.0-36.0); MEAN CELL VOLUME 91.1 fl (80-96); MONO % 9.8 % (3.8-10.2); NEUT % 76.3 % (42.8-82.8); PLATELET COUNT 244 10^3/uL (134-434); RBC 4.48 M/mm3 (3.60-5.2); RDW 13.5 % (11.6-15.6); WHITE BLOOD COUNT 8.6 K/mm3 (4.0-10.0)
[2022-10-04 19:07] LABS: INR 1.08 (0.83-1.09); PROTHROMBIN TIME (PATIENT) 12.4 SEC (9.7-13.0)
[2022-10-04 19:23] LABS: ALBUMIN 3.2 g/dl (3.4-5.0); BLOOD UREA NITROGEN 7.3 mg/dL (7-18)
[2022-10-04 19:26] LABS: CREATININE 0.4 mg/dL (0.55-1.3)
[2022-10-04 19:28] LABS: BILIRUBIN,TOTAL 1.5 mg/dL (0.2-1); TOT PROT 6.9 g/dl (6.4-8.2)
[2022-10-04] MEDS ORDERED: morphine CARPU-JECT 2 MG/1 ML DISP.SYRIN IVPUSH ONE (22:54)
[2022-10-05] MEDS ORDERED: ACETAMINOPHEN 1000 MG/100 ML BAG IVPB PRN (02:04)
[2022-10-05] MEDS: SODIUM CHLORIDE 1,000 ML IV SCH ×3 (02:17→23:48)
[2022-10-05] MEDS ORDERED: ONDANSETRON 4 MG/2 ML VIAL IVPUSH PRN (02:42)
[2022-10-05 03:37] VITALS: BMI 24.5
[2022-10-05 09:19] LABS: BASO % 0.4 % (0-2.0); EOS % 0.3 % (0-4.5); HEMOGLOBIN 11.6 GM/dL (10.7-15.3); LYMPH % 26.2 % (8-40); MCH 30.3 pg (25.7-33.7); MCHC 33.1 g/dl (32.0-36.0); MEAN CELL VOLUME 91.6 fl (80-96); MEAN PLT VOLUME 10.1 fl (7.5-11.1); MONO % 9.5 % (3.8-10.2); NEUT % 63.6 % (42.8-82.8); PLATELET COUNT 206 10^3/uL (134-434); RBC 3.82 M/mm3 (3.60-5.2); RDW 13.5 % (11.6-15.6); WHITE BLOOD COUNT 7.3 K/mm3 (4.0-10.0)
[2022-10-05 09:25] LABS: CALCIUM 9.9 mg/dL (8.5-10.1)
[2022-10-05 09:26] LABS: ALBUMIN 2.6 g/dl (3.4-5.0); BLOOD UREA NITROGEN 5.1 mg/dL (7-18); MAGNESIUM 1.8 mg/dL (1.8-2.4)
[2022-10-05 09:29] LABS: CREATININE 0.3 mg/dL (0.55-1.3); PHOSPHOROUS 2.4 mg/dL (2.5-4.9)
[2022-10-05 09:30] LABS: BILIRUBIN,TOTAL 1.6 mg/dL (0.2-1); TOT PROT 5.6 g/dl (6.4-8.2)
[2022-10-05] MEDS ORDERED: POTASSIUM CHLORIDE TABS 20 MEQ TABLET.ER (FP) PO ONE (11:07)
[2022-10-05] MEDS ORDERED: METOCLOPRAMIDE HCL INJECTION 10 MG/2 ML VIAL IVPUSH PRN (11:14)
[2022-10-06 07:42] LABS: BASO % 0.2 % (0-2.0); EOS % 0.5 % (0-4.5); HEMATOCRIT 35.7 % (32.4-45.2); HEMOGLOBIN 11.8 GM/dL (10.7-15.3); LYMPH % 36.5 % (8-40); MCHC 33.1 g/dl (32.0-36.0); MEAN CELL VOLUME 90.6 fl (80-96); MEAN PLT VOLUME 9.6 fl (7.5-11.1); MONO % 10.8 % (3.8-10.2); PLATELET COUNT 219 10^3/uL (134-434); RBC 3.93 M/mm3 (3.60-5.2); RDW 13.3 % (11.6-15.6); WHITE BLOOD COUNT 6.6 K/mm3 (4.0-10.0)
[2022-10-06 08:27] LABS: CALCIUM 10.2 mg/dL (8.5-10.1)
[2022-10-06 08:28] LABS: ALBUMIN 2.6 g/dl (3.4-5.0); BLOOD UREA NITROGEN 4.1 mg/dL (7-18)
[2022-10-06 08:31] LABS: CREATININE 0.3 mg/dL (0.55-1.3)
[2022-10-06 08:32] LABS: BILIRUBIN,TOTAL 0.8 mg/dL (0.2-1); TOT PROT 5.7 g/dl (6.4-8.2)
[2022-10-06] MEDS: SODIUM CHLORIDE 1,000 ML IV SCH (12:21)
[2022-10-06 22:28] VITALS: BP 99/65; PULSE 84; RESP 16; TEMP 98.2
== END 2022-10-06 21:20 | disposition short-term general hospital (02) | DRG 566 ==
LOC: JER 16:42 → JERBED 23:00 → J3W 10-05 03:00
PROVIDERS: ADMIT Internal Medicine; ATTEND Internal Medicine
DX: O99.611 Diseases of the digestive system complicating pregnancy, first trimester (principal); K80.80 Other cholelithiasis without obstruction; Z3A.10 10 weeks gestation of pregnancy; R11.2 Nausea with vomiting, unspecified
CPT/HCPCS: 0241U-QW; 36415; 76705-TC; 76815; 76817-TC; 80053; 83735; 84100; 84702; 85025; 85610; 85730; 86850; 86900; 86901; 99285-25

== ENCOUNTER 2023-01-26 00:15 | Emergency (ER) | payer OTHER ==
[2023-01-26 00:31] VITALS: BP 112/80; PULSE 91; RESP 16; TEMP 98; BMI 25.7
[2023-01-26] MEDS ORDERED: CEPHALEXIN 250 MG/5 ML ORAL SUSPENSION PO ONE (01:20)
[2023-01-26] MEDS ORDERED: CEPHALEXIN MONOHYDRATE 500 MG CAPSULE (UD) ONE (01:30)
== END 2023-01-26 02:07 | disposition home or self-care (01) ==
LOC: JER 00:15
DX: O99.713 Diseases of the skin and subcutaneous tissue complicating pregnancy, third trimester (principal); L03.032 Cellulitis of left toe; Z3A.28 28 weeks gestation of pregnancy
CPT/HCPCS: 73630-TC-LT; 99283-25

== ENCOUNTER 2023-04-17 07:40 | Inpatient (IN) | payer OTHER ==
[2023-04-17 08:46] VITALS: BMI 30.1
[2023-04-17] MEDS ORDERED: CITRIC ACID/SODIUM CITRATE 30 ML UNIT-DOSE CUP PO ONE (09:38)
[2023-04-17] MEDS ORDERED: ELECTROLYTE-148 SOLN 1,000 ML IV SCH (09:45)
[2023-04-17] MEDS ORDERED: ACETAMINOPHEN 325 MG TABLET (FP) PO PRN ×2 (09:57→11:31)
[2023-04-17] MEDS ORDERED: ONDANSETRON 4 MG/2 ML VIAL IVPUSH PRN (09:57)
[2023-04-17] MEDS ORDERED: morphine SULFATE/PF 1 MG/2 ML (2cc Syringe - QUVA) ONE (10:49)
[2023-04-17] MEDS ORDERED: ceFAZolin SODIUM 1 GM VIAL ONE ×2 (11:06)
[2023-04-17] MEDS ORDERED: OXYTOCIN 10 UNITS/ML VIAL ONE ×2 (11:06)
[2023-04-17] MEDS ORDERED: MIDAZOLAM HCL 2 MG/2 ML SINGLE DOSE VIAL ONE ×2 (11:16→11:18)
[2023-04-17] MEDS ORDERED: FENTANYL CITRATE/PF 50 MCG/ML VIAL ONE ×2 (11:19→11:22)
[2023-04-17] MEDS ORDERED: PROPOFOL 20 ML ONE (11:20)
[2023-04-17] MEDS ORDERED: METHYLERGONOVINE MALEATE 0.2 MG/1 ML AMP IM PRN (11:31)
[2023-04-17] MEDS ORDERED: OXYTOCIN 20 UNITS in 0.9% NS 20 UNIT/1,000 ML INFUS.BAG IV ONE (12:13)
[2023-04-17] MEDS ORDERED: ACETAMINOPHEN INJECTION 100 ML IVPB ONE (12:13)
[2023-04-17] MEDS ORDERED: ACETAMINOPHEN 1000 MG/100 ML BAG IVPB ONE (12:15)
[2023-04-17] MEDS: OXYTOCIN 20 UNITS in 0.9% NS 20 UNIT/1,000 ML INFUS.BAG IV SCH ×2 (12:15→20:00)
[2023-04-17] MEDS: IBUPROFEN 800 MG/8 ML IJ IVPB PRN ×2 (13:46→23:17)
[2023-04-17] MEDS ORDERED: oxyCODONE HCL 5 MG TABLET PO ONE (14:30)
[2023-04-17 17:59] VITALS: RESP 18
[2023-04-17] MEDS: SIMETHICONE 80 MG TAB.CHEW (FP) PO PRN (23:17)
[2023-04-18] MEDS: SIMETHICONE 80 MG TAB.CHEW (FP) PO PRN ×4 (05:19→22:27)
[2023-04-18] MEDS: IBUPROFEN 800 MG/8 ML IJ IVPB PRN (06:05)
[2023-04-18 07:14] LABS: BASO % 0.3 % (0-2.0); EOS % 1.9 % (0-4.5); HEMATOCRIT 30.6 % (32.4-45.2); HEMOGLOBIN 9.9 GM/dL (10.7-15.3); MCH 26.8 pg (25.7-33.7); MCHC 32.5 g/dl (32.0-36.0); MEAN CELL VOLUME 82.3 fl (80-96); MEAN PLT VOLUME 9.3 fl (7.5-11.1); MONO % 11.2 % (3.8-10.2); NEUT % 72.6 % (42.8-82.8); PLATELET COUNT 178 10^3/uL (134-434); RBC 3.71 M/mm3 (3.60-5.2); RDW 15.8 % (11.6-15.6); WHITE BLOOD COUNT 13.7 K/mm3 (4.0-10.0)
[2023-04-18] MEDS: PRENATAL VITAMINS W/ FOLIC ACID TABLET (FP) PO SCH (10:04)
[2023-04-18] MEDS ORDERED: BISACODYL 10 MG SUPP.RECT RC PRN (11:31)
[2023-04-18] MEDS: oxyCODONE HCL 5 MG TABLET PO PRN (11:36)
[2023-04-18] MEDS: IBUPROFEN 600 MG TABLET (FP) PO PRN ×3 (12:56→22:28)
[2023-04-18] MEDS: OXYTOCIN 20 UNITS in 0.9% NS 20 UNIT/1,000 ML INFUS.BAG IV SCH (17:54)
[2023-04-19] MEDS: IBUPROFEN 600 MG TABLET (FP) PO PRN ×3 (06:15→22:31)
[2023-04-19] MEDS: SIMETHICONE 80 MG TAB.CHEW (FP) PO PRN ×3 (06:16→22:31)
[2023-04-19] MEDS: PRENATAL VITAMINS W/ FOLIC ACID TABLET (FP) PO SCH (09:36)
[2023-04-19] MEDS: oxyCODONE HCL 5 MG TABLET PO PRN ×2 (12:43→23:22)
[2023-04-20 06:48] LABS: BASO % 0.8 % (0-2.0); EOS % 2.9 % (0-4.5); HEMATOCRIT 30.7 % (32.4-45.2); HEMOGLOBIN 9.7 GM/dL (10.7-15.3); LYMPH % 24.1 % (8-40); MCH 26.4 pg (25.7-33.7); MCHC 31.5 g/dl (32.0-36.0); MEAN CELL VOLUME 83.7 fl (80-96); MEAN PLT VOLUME 9.5 fl (7.5-11.1); MONO % 8.2 % (3.8-10.2); PLATELET COUNT 238 10^3/uL (134-434); RBC 3.67 M/mm3 (3.60-5.2); RDW 15.8 % (11.6-15.6); WHITE BLOOD COUNT 11.8 K/mm3 (4.0-10.0)
[2023-04-20] MEDS: SIMETHICONE 80 MG TAB.CHEW (FP) PO PRN (09:25)
[2023-04-20] MEDS: PRENATAL VITAMINS W/ FOLIC ACID TABLET (FP) PO SCH (09:25)
[2023-04-20] MEDS: IBUPROFEN 600 MG TABLET (FP) PO PRN (09:25)
[2023-04-20 09:37] VITALS: BP 119/65; PULSE 87; TEMP 98.7
== END 2023-04-20 15:20 | disposition home or self-care (01) | DRG 540 ==
LOC: JLDR 07:40 → J3W 13:28
PROVIDERS: ADMIT Obstetrics & Gynecology; ATTEND Obstetrics & Gynecology
PROC: 10D00Z1 Extraction of Products of Conception, Low, Open Approach (ICD-10-PCS; principal; 2023-04-17)
DX: O34.211 Maternal care for low transverse scar from previous cesarean delivery (principal); N85.8 Other specified noninflammatory disorders of uterus; Z3A.39 39 weeks gestation of pregnancy; Z37.0 Single live birth
CPT/HCPCS: 36415; 85025; 88307-TC; 94010

== ENCOUNTER 2024-05-24 19:06 | Emergency (ER) | payer OTHER ==
[2024-05-24 19:13] VITALS: BMI 22.1
[2024-05-24] MEDS ORDERED: ONDANSETRON 4 MG/2 ML VIAL ONE (20:43)
[2024-05-24] MEDS ORDERED: ACETAMINOPHEN INJECTION 100 ML IVPB ONE (20:43)
[2024-05-24 20:50] LABS: BASO % 0.3 % (0-2.0); EOS % 1.5 % (0-4.5); HEMATOCRIT 34.7 % (32.4-45.2); HEMOGLOBIN 11.3 GM/dL (10.7-15.3); LYMPH % 15.2 % (8-40); MCHC 32.7 g/dl (32.0-36.0); MEAN CELL VOLUME 88.8 fl (80-96); MEAN PLT VOLUME 9.3 fl (7.5-11.1); MONO % 6.6 % (3.8-10.2); NEUT % 76.4 % (42.8-82.8); PLATELET COUNT 263 10^3/uL (134-434); WHITE BLOOD COUNT 14.9 K/mm3 (4.0-10.0)
[2024-05-24] MEDS: ONDANSETRON 4 MG/2 ML VIAL IVPUSH ONE (20:58)
[2024-05-24] MEDS: SODIUM CHLORIDE 0.9% 500 ML INFUS.BAG IV ONE (20:58)
[2024-05-24] MEDS: ACETAMINOPHEN 1000 MG/100 ML BAG IVPB ONE (20:58)
[2024-05-24] MEDS: ACETAMINOPHEN 500 MG TABLET (FP) PO ONE (20:59)
[2024-05-24 21:00] LABS: POTASSIUM 4.2 mmol/L (3.5-5.1)
[2024-05-24 21:03] LABS: ALBUMIN 3.6 g/dl (3.4-5.0); BLOOD UREA NITROGEN 7.7 mg/dL (7-18); CALCIUM 10.8 mg/dL (8.5-10.1)
[2024-05-24 21:06] LABS: CREATININE 0.6 mg/dL (0.55-1.3)
[2024-05-24 21:08] LABS: BILIRUBIN,TOTAL 0.4 mg/dL (0.2-1); TOT PROT 6.9 g/dl (6.4-8.2)
[2024-05-24 21:13] LABS: EPI CELLS 18 /uL (0-25.1); HYALINE CASTS 2 /uL (0-3.1); URINE APPEARANCE TURBID; URINE BACTERIA 11 /uL (0-1359); URINE BILIRUBIN 1+ (NEGATIVE); URINE COLOR RED; URINE GLUCOSE (UA) NEGATIVE (NEGATIVE); URINE KETONE NEGATIVE (NEGATIVE); URINE LEUK ESTERASE 2+ (NEGATIVE); URINE NITRITE NEGATIVE (NEGATIVE); URINE PROTEIN 2+ (NEGATIVE); URINE WBC 134 /uL (0-25.8)
[2024-05-24 21:30] LABS: URINE RBC 35886.5 /uL (0-23.9); YEAST NEGATIVE (NEGATIVE)
[2024-05-24] MEDS ORDERED: MORPHINE SULFATE 2 MG/ML SYRINGE ONE (23:07)
[2024-05-24 23:40] LABS: BASO % 0.5 % (0-2.0); EOS % 1.1 % (0-4.5); HEMATOCRIT 29.8 % (32.4-45.2); HEMOGLOBIN 9.9 GM/dL (10.7-15.3); LYMPH % 21.4 % (8-40); MCH 29.3 pg (25.7-33.7); MCHC 33.3 g/dl (32.0-36.0); MEAN CELL VOLUME 87.9 fl (80-96); MEAN PLT VOLUME 8.8 fl (7.5-11.1); MONO % 5.5 % (3.8-10.2); NEUT % 71.5 % (42.8-82.8); PLATELET COUNT 228 10^3/uL (134-434); RBC 3.39 M/mm3 (3.60-5.2); RDW 14.1 % (11.6-15.6); WHITE BLOOD COUNT 14.6 K/mm3 (4.0-10.0)
[2024-05-25] MEDS ORDERED: CEPHALEXIN MONOHYDRATE 500 MG CAPSULE (UD) ONE (06:10)
[2024-05-25] MEDS: CEPHALEXIN MONOHYDRATE 500 MG CAPSULE (UD) PO ONE (06:19)
[2024-05-25 06:30] VITALS: BP 110/77; PULSE 67; RESP 13; TEMP 97.8
== END 2024-05-25 06:34 | disposition home or self-care (01) ==
LOC: JER 19:06
PROC: 3E033NZ Introduction of Analgesics, Hypnotics, Sedatives into Peripheral Vein, Percutaneous Approach (ICD-10-PCS; principal; 2024-05-24)
PROC: 3E033NZ Introduction of Analgesics, Hypnotics, Sedatives into Peripheral Vein, Percutaneous Approach (ICD-10-PCS; 2024-05-24)
PROC: 3E033GC Introduction of Other Therapeutic Substance into Peripheral Vein, Percutaneous Approach (ICD-10-PCS; 2024-05-24)
DX: O20.0 Threatened abortion (principal); O23.41 Unspecified infection of urinary tract in pregnancy, first trimester; O26.891 Other specified pregnancy related conditions, first trimester; R10.84 Generalized abdominal pain; Z3A.01 Less than 8 weeks gestation of pregnancy
CPT/HCPCS: 36415; 76817-TC; 80053; 81003; 84702; 85025; 86850; 86900; 86901; 87086; 96374; 96375; 99284-25; J0131